=== PATIENT | male | born 1995 | race Caucasian/White ===

== ENCOUNTER 2023-04-28 19:49 | Inpatient (IN) | payer MEDICAID, SELFPAY ==
[2023-04-28 19:50] VITALS: BP 114/73; PULSE 82; RESP 16; TEMP 36.6; O2SAT 100; BMI 17.0
[2023-04-28 21:52] LABS: Absolute Lymphocyte Count 2.32 X10^3/uL (0.83-4.51); Absolute Neutrophil Count 3.6 X10^3/uL (2.0-7.7); Basophil# 0.02 X10^3/uL; Basophil% 0.3 % (0-1); Eosinophil# 0.12 X10^3/uL; Eosinophils% 1.9 % (0-5); Hematocrit 43.7 % (40-54); Hemoglobin 14.6 g/dL (13.0-16.5); Lymphocyte # 2.32 X10^3/ul (0.83-4.51); Lymphocyte % 36.1 % (19-41); Mean Corp Hgb Conc 33.4 g/dL (32-36); Mean Corpuscular Hgb 29.6 pg (27.0-32.0); Mean Corpuscular Volume 88.5 fL (80-94); Mean Platelet Vol. 10.2 fl (6.2-12.0); Monocyte# 0.38 X10^3/uL; Monocyte% 5.9 % (0-10); NRBC Flagged by Analyzer 0 % (0-5); Neutrophil # 3.57 X10^3/uL (2.7-7.7); Neutrophil % 55.6 % (47-70); Platelet Count 231 K/mm3 (150-450); RBC Distribution Width CV 12.4 % (11.6-14.6); Red Blood Count 4.94 M/mm3 (4.6-6.2); White Blood Count 6.4 K/mm3 (4.4-11.0)
--- NOTE | 2023-04-28 22:18 | EDS_ITS ---
HPI History of Present Illness Chief Complaint: Substance Abuse Informant: patient and spouse/S.O. Narrative Narrative: 27-year-old male presenting to the emergency department requesting detox from fentanyl. Patient states that he had been sober for 2 years until about 4 to 5 months ago when he began multiple daily uses. He notes that he injected 1 time and the rest has been smoking. He states that he used to only get withdrawal symptoms the next day but now he can go 1 to 2 hours after use before he gets some withdrawal symptoms. He notes chills and sweats. He notes some nausea and muscle cramps. He denies any pending legal issues. He is not on probation. He is not currently working. He states he is sick and tired of being sick and tired. He states the never-ending cycle of using and withdrawing has taken its toll and he wants to become sober [facility] Home Medications NK 04/28/23 [History Last Taken Unknown] Allergy/AdvReac Type Severity Reaction Status Date / Time No Known Allergies Allergy Verified 04/28/23 19:50 Social History (Updated 04/28/23 @ 22:[address] Hi Javier, ) Smoking Status: Current every day smoker tobacco type: cigarettes substance use type: opiates ROS ROS ED Constitutional Constitutional ED: Reports chills and sweats; Denies fever(s) or weight loss Eyes Eyes: Denies change in vision or diplopia ENT ENT ED: Denies ear pain, rhinorrhea or sore throat Cardiovascular Cardiovascular: Denies chest pain, orthopnea, palpitations or racing heartbeat Respiratory/Chest Respiratory/Chest: Denies cough, dyspnea or orthopnea Gastrointestinal Gastrointestinal: Reports nausea; Denies abdominal pain, diarrhea or vomiting Genitourinary Genitourinary ED: Denies dysuria, hematuria or urinary frequency Musculoskeletal Musculoskeletal: Reports myalgias; Denies arthralgias, back pain or neck pain Integumentary Denies abscess or rash Neurologic Neurologic: Reports headache(s); Denies weakness Psychiatric Psychiatric: Denies anxiety, depression, suicidal ideation or suicidal thoughts Endocrine Endocrinology: Denies polydipsia, polyphagia or polyuria Allergic/Immunologic Allergic/Immunologic ED: Denies mouth swelling, tongue swelling or urticaria EXAM Physical Exam Const Vital Signs: 04/28/23 19:50 Temperature 97.9 F Temperature Source Temporal Pulse Rate 82 Respiratory Rate 16 Blood Pressure 114/73 Blood Pressure Mean 86 Pulse Ox 100 Oxygen Delivery Method Room Air Positive well nourished and well developed General Appearance ED: well developed HEENT Reports normocephalic, head/scalp atraumatic and moist mucous membranes Eyes PERRL and EOMs intact bilaterally Neck no lymphadenopathy, supple and no JVD Resp normal respiratory effort and clear to auscultation bilaterally Cardio regular rate, regular rhythm and no murmurs GI normal to inspection, nondistended, normoactive bowel sounds and non-tender Palpation: soft Back/Spine no CVA tenderness and normal ROM Extremity normal to inspection General Extremety ED: Negative for edema General Extremity: Negative for edema Neuro oriented x3 and CN's II-XII intact bilaterally Sensorium / Orientation: alert Motor Exam: strength 5/5 throughout Psych mental status grossly normal Mood & Affect: Negative for depressed or tearful Skin no rashes or lesions noted and no wounds MDM MDM MDM Narrative Medical decision making narrative: ED addiction labs were obtained. Normal white count at 6.4. Urine tox is significant only for cannabinoids. CMP within normal limits. I spoke with the hospitalist who admit the patient to the [facility]. Lab Data Attestation: I reviewed the patient's lab results. Labs: Laboratory Results - last 24 hr 04/28/23 04/28/23 21:43 22:10 WBC 6.4 RBC 4.94 Hgb 14.6 Hct 43.7 MCV 88.5 MCH 29.6 MCHC 33.4 RDW Std Deviation 40.0 RDW Coeff of Viraj 12.4 Plt Count 231 MPV 10.2 Immature Gran % (Auto) 0.200 Neut % (Auto) 55.6 Lymph % (Auto) 36.1 Grant % (Auto) 5.9 Eos % (Auto) 1.9 Baso % (Auto) 0.3 Absolute Neuts (auto) 3.6 Absolute Lymphs (auto) 2.32 Nucleated RBC % 0 Sodium 137 Potassium 3.7 Chloride 102 Carbon Dioxide 31.0 Anion Gap 4 L BUN 8 Creatinine 0.76 Estim Creat Clear Calc 119.76 Est GFR (MDRD) Af Amer 157 Est GFR (MDRD) Non-Af 130 BUN/Creatinine Ratio 10.5 Glucose 55 L Calcium 9.2 Total Bilirubin 0.40 AST 24 ALT 46 Alkaline Phosphatase 104 Total Protein 7.8 Albumin 4.0 Globulin 3.8 Albumin/Globulin Ratio 1.1 Urine Opiates Screen NEGATIVE Urine Methadone Screen NEGATIVE Ur Barbiturates Screen NEGATIVE Ur Phencyclidine Scrn NEGATIVE Ur Amphetamines Screen NEGATIVE MDMA (Ecstasy) Screen NEGATIVE U Benzodiazepines Scrn NEGATIVE Urine Cocaine Screen NEGATIVE U Cannabinoids Screen POSITIVE H Ur Drug Screen Comment Ethyl Alcohol < 3.0 Management Discussion w/another healthcare provider: Hospitalist Discharge Plan Dx/Rx/DC Orders Clinical Impression: Opiate withdrawal, Opiate addiction Disposition Disposition: Acute Care Hospital [facility]
[2023-04-28 22:25] LABS: Alcohol, Blood (Medical)-Serum < 3.0 mg/dL
[2023-04-28 22:39] LABS: ALB/GLOB Ratio 1.1 RATIO (0.9-2.4); AST(SGOT) 24 U/L (15-37); Alanine Aminotransfer ALT/SGPT 46 U/L (16-61); Alkaline Phosphatase 104 U/L (45-117); Anion Gap 4 (5-15); BUN 8 mg/dL (7-18); BUN/Creat Ratio 10.5 RATIO (10-20); Calcium,Total 9.2 mg/dL (8.5-10.1); Chloride 102 mmol/L (98-107); Creatinine, Serum 0.76 mg/dL (0.70-1.30); EST Glomerular Filtration Rate 130 mL/min (>60); Est Glom Filt Rate - Afr Amer 157 mL/min (>60); Estimated Creatinine Clearance 119.76 ml/min; Globulin 3.8 g/dL (2.2-4.2); Glucose 55 mg/dL (74-106); Potassium 3.7 mmol/L (3.5-5.1); Protein, Total 7.8 g/dL (6.4-8.2); Sodium Level 137 mmol/L (136-145)
[2023-04-28 22:54] LABS: Amphetamine Urine VISTA NEGATIVE (<1000 ng/mL); Barbiturate Urine VISTA NEGATIVE (< 200 ng/mL); Benzodiazepine Urine VISTA NEGATIVE (< 200 ng/mL); Cocaine Urine VISTA NEGATIVE (< 300 ng/mL); Ecstacy Urine VISTA NEGATIVE (< 500 ng/mL); Methadone Urine VISTA NEGATIVE (< 300 ng/mL); PCP Urine VISTA NEGATIVE (< 25 ng/mL); THC Urine VISTA POSITIVE (< 50 ng/mL); Vista UDS pH Range 6
--- NOTE | 2023-04-28 23:19 | PCM.HP.STD ---
HPI - General General Date of Admission: 04/28/23 Date of Service: 04/28/23 Chief Complaint: Opioid withdrawal syndrome HPI Narrative LUKAS ANSARI, is a 27 M with history of chronic IVDA use, usesx fentanyl half to 1 g daily came to ED for help for withdrawal. Patient currently having active withdrawal symptoms including feeling of hot and cold, tremors, anxiety attack, goosebumps. Patient also have runny nose. Patient denies methamphetamine or crack cocaine use. Vitals are stable in the ER. Patient is admitted for acute blood withdrawal syndrome. Personal history of chronic hepatitis C. Family history no IV substance use in father or mother. [facility] Medical History Anxiety Cholecystectomy planned Hepatitis C Home Medications NK 04/28/23 [History Last Taken Unknown] Allergy/AdvReac Type Severity Reaction Status Date / Time No Known Allergies Allergy Verified 04/28/23 19:50 Social History Smoking Status: Current every day smoker tobacco type: cigarettes substance use type: opiates ROS ROS Narrative Constitutional: Reports fatigue and weakness. No fever. HEENT: Reports systems reviewed and no addt'l complaints, except as documented Respiratory/Chest: No acute shortness of breath or respiratory distress or wheezing. CVS: No chest pressure or tightness. Gastrointestinal: Denies coffee ground emesis, hematemesis or vomiting Genitourinary: Denies burning urination or new urinary tract symptoms Musculoskeletal: Denies acute joint pain or limited range of motion. No acute injury Neurologic: Denies seizure-like symptoms. Restlessness. skin: No ulcer. No rash Endocrinology: Reports systems reviewed and no addt'l complaints, except as documented Hematologic/Lymphatic: Reports systems reviewed and no addt'l complaints, except as documented Rest 14 ROS are negative except as mentioned in HPI Vital Signs Vital Signs Vital Signs: 04/28/23 19:50 Temperature 97.9 F Temperature Source Temporal Pulse Rate 82 Respiratory Rate 16 Blood Pressure 114/73 Blood Pressure Mean 86 Pulse Ox 100 Oxygen Delivery Method Room Air Weight Weight: 129 lb Body Mass Index (BMI) 17.0 Physical Exam Narrative General: Alert, Oriented x3, Cooperative HEENT: Atraumatic, PERRLA, EOMI, Normocephalic Oral: Oral mucosa dry. No Gingival or Mucosal Lesions/ Ulcerations Neck: Supple, No JVD, Negative Carotid Bruits Lungs: Air entry diminished in bilateral lung bases. No crepitation/rhonchi Cardiovascular: Regular rate, Regular Rhythm, Normal S1, Normal S2, No murmurs Abdomen: Bowel Sounds Present, Soft, Non Tender, Non-Distended : No renal angle tenderness. No suprapubic tenderness. Extremities: No edema, Capillary Refill Less than 3 Seconds Skin: No rashes, No breakdown Musculoskeletal: No Tenderness to Palpation of Joints or Extremities Neurological: Cranial nerves II-XII grossly intact, DTR 2+/4. No acute focal neurological deficit. Psych/Mental Status: Flat affect. Anxiety Results Lab / Micro Data 04/28/23 21:43 04/28/23 21:43 Labs: Laboratory Results - last 24 hr 04/28/23 21:43: WBC 6.4, RBC 4.94, Hgb 14.6, Hct 43.7, MCV 88.5, MCH 29.6, MCHC 33.4, RDW Std Deviation 40.0, RDW Coeff of Viraj 12.4, Plt Count 231, MPV 10.2, Immature Gran % (Auto) 0.200, Neut % (Auto) 55.6, Lymph % (Auto) 36.1, [place] % (Auto) 5.9, Eos % (Auto) 1.9, Baso % (Auto) 0.3, Absolute Neuts (auto) 3.6, Absolute Lymphs (auto) 2.32, Nucleated RBC % 0, Sodium 137, Potassium 3.7, Chloride 102, Carbon Dioxide 31.0, Anion Gap 4 L, BUN 8, Creatinine 0.76, Estim Creat Clear Calc 119.76, Est GFR (MDRD) Af Amer 157, Est GFR (MDRD) Non-Af 130, BUN/Creatinine Ratio 10.5, Glucose 55 L, Calcium 9.2, Total Bilirubin 0.40, AST 24, ALT 46, Alkaline Phosphatase 104, Total Protein 7.8, Albumin 4.0, Globulin 3.8, Albumin/Globulin Ratio 1.1, Ethyl Alcohol < 3.0 04/28/23 22:10: Urine Opiates Screen NEGATIVE, Urine Methadone Screen NEGATIVE, Ur Barbiturates Screen NEGATIVE, Ur Phencyclidine Scrn NEGATIVE, Ur Amphetamines Screen NEGATIVE, MDMA (Ecstasy) Screen NEGATIVE, U Benzodiazepines Scrn NEGATIVE, Urine Cocaine Screen NEGATIVE, U Cannabinoids Screen POSITIVE H, Ur Drug Screen Comment Assessment & Plan Assessment/Plan (1) Opioid withdrawal delirium, acute, hyperactive: PLAN: Plan 1. Acute opioid withdrawal syndrome with history of chronic opioid use disorder tolerance and dependence: [facility] The patient is started on buprenorphine along with other adjunctive medications as needed for medical stabilization as per order set of opioid withdrawal syndrome.Patient also on trazodone, hydroxyzine, gabapentin as needed ordered. Advised quitting opioid use. intervention manager consult. C WILFREDO and COWS score. 2. Chronic hepatitis C: Need to follow-up with the GI clinic. Advised quitting opioids. Denies HIV or hep B. 3. Chronic cigarette smoking: Nicotine patch DVT prophylaxis: Low risk. Early ambulation encouraged. No pharmacological prophylaxis indicated Laboratory Results 04/28/23 21:43: WBC 6.4, RBC 4.94, Hgb 14.6, Hct 43.7, MCV 88.5, MCH 29.6, MCHC 33.4, RDW Std Deviation 40.0, RDW Coeff of Viraj 12.4, Plt Count 231, MPV 10.2, Immature Gran % (Auto) 0.200, Neut % (Auto) 55.6, Lymph % (Auto) 36.1, [place] % (Auto) 5.9, Eos % (Auto) 1.9, Baso % (Auto) 0.3, Absolute Neuts (auto) 3.6, Absolute Lymphs (auto) 2.32, Nucleated RBC % 0, Sodium 137, Potassium 3.7, Chloride 102, Carbon Dioxide 31.0, Anion Gap 4 L, BUN 8, Creatinine 0.76, Estim Creat Clear Calc 119.76, Est GFR (MDRD) Af Amer 157, Est GFR (MDRD) Non-Af 130, BUN/Creatinine Ratio 10.5, Glucose 55 L, Calcium 9.2, Total Bilirubin 0.40, AST 24, ALT 46, Alkaline Phosphatase 104, Total Protein 7.8, Albumin 4.0, Globulin 3.8, Albumin/Globulin Ratio 1.1, Ethyl Alcohol < 3.0 04/28/23 22:10: Urine Opiates Screen NEGATIVE, Urine Methadone Screen NEGATIVE, Ur Barbiturates Screen NEGATIVE, Ur Phencyclidine Scrn NEGATIVE, Ur Amphetamines Screen NEGATIVE, MDMA (Ecstasy) Screen NEGATIVE, U Benzodiazepines Scrn NEGATIVE, Urine Cocaine Screen NEGATIVE, U Cannabinoids Screen POSITIVE H, Ur Drug Screen Comment Charges/Coding Visit Charges Inpatient E&M: 02976 Init Hosp L3
[2023-04-29 00:15] LABS: Prothrombin Time (Protime)PT. 13.4 SECONDS (11.7-14.9)
[2023-04-29 00:37] VITALS: BP 101/55; PULSE 58; RESP 18; O2SAT 97
[2023-04-29 00:40] VITALS: BP 101/55
[2023-04-29 01:03] VITALS: BMI 16.9
[2023-04-29 01:45] VITALS: BP 120/72; PULSE 61; RESP 16; TEMP 36.7; O2SAT 98
[2023-04-29] MEDS: Ondansetron 8 MG Tablet PO ×2 (01:50→12:02)
[2023-04-29] MEDS: traZODone 100 MG Tablet PO (01:50)
[2023-04-29] MEDS: Methocarbamol 750 MG Tablet PO ×2 (01:50→10:25)
[2023-04-29] MEDS: hydrOXYzine PAM 25 MG Capsule 50 MG PO ×3 (01:50→17:59)
[2023-04-29] MEDS: Buprenorphine HCl 2 MG TAB.SUBL SL ×3 (01:59→17:59)
[2023-04-29 03:18] VITALS: BP 139/96; PULSE 97; RESP 18; TEMP 36.5; O2SAT 100
[2023-04-29] MEDS: Gabapentin 300 MG Capsule PO ×2 (03:19→12:02)
[2023-04-29] MEDS: cloNIDine HCl 0.1 MG Tablet PO ×2 (03:19→12:02)
[2023-04-29] MEDS: Ibuprofen 600 MG Tablet PO ×2 (03:38→12:02)
--- NOTE | 2023-04-29 09:45 | PCM.PN.HOSP ---
Subjective Subjective Resting comfortably, Cina score of 11 Objective Data Objective Data Vital Signs: Vital Signs Temp Pulse Resp BP Pulse Ox O2 Del Method 97.7 F L 97 18 139/96 H 100 Room Air 04/29/23 03:18 04/29/23 03:18 04/29/23 03:18 04/29/23 03:18 04/29/23 03:18 04/29/23 03:18 Oxygen Delivery Method Room Air Weight: 128 lb 4.944 oz Body Mass Index (BMI) 16.9 Lab / Micro Data 04/28/23 21:43 04/28/23 21:43 Labs: Laboratory Results - last 24 hr 04/28/23 21:43: WBC 6.4, RBC 4.94, Hgb 14.6, Hct 43.7, MCV 88.5, MCH 29.6, MCHC 33.4, RDW Std Deviation 40.0, RDW Coeff of Viraj 12.4, Plt Count 231, MPV 10.2, Immature Gran % (Auto) 0.200, Neut % (Auto) 55.6, Lymph % (Auto) 36.1, [place] % (Auto) 5.9, Eos % (Auto) 1.9, Baso % (Auto) 0.3, Absolute Neuts (auto) 3.6, Absolute Lymphs (auto) 2.32, Nucleated RBC % 0, Sodium 137, Potassium 3.7, Chloride 102, Carbon Dioxide 31.0, Anion Gap 4 L, BUN 8, Creatinine 0.76, Estim Creat Clear Calc 119.76, Est GFR (MDRD) Af Amer 157, Est GFR (MDRD) Non-Af 130, BUN/Creatinine Ratio 10.5, Glucose 55 L, Calcium 9.2, Total Bilirubin 0.40, AST 24, ALT 46, Alkaline Phosphatase 104, Total Protein 7.8, Albumin 4.0, Globulin 3.8, Albumin/Globulin Ratio 1.1, Ethyl Alcohol < 3.0 04/28/23 22:10: Urine Opiates Screen NEGATIVE, Urine Methadone Screen NEGATIVE, Ur Barbiturates Screen NEGATIVE, Ur Phencyclidine Scrn NEGATIVE, Ur Amphetamines Screen NEGATIVE, MDMA (Ecstasy) Screen NEGATIVE, U Benzodiazepines Scrn NEGATIVE, Urine Cocaine Screen NEGATIVE, U Cannabinoids Screen POSITIVE H, Ur Drug Screen Comment 04/28/23 23:57: PT 13.4, INR 1.0 Physical Exam Narrative General: Alert, Oriented x3, Cooperative, No apparent distress HEENT: Atraumatic, PERRLA, EOMI, Normocephalic Oral: Moist Mucosa Neck: Supple, No JVD Lungs: Clear to auscultation, Normal air movement, No rhonchi, No wheeze, No rales Cardiovascular: Regular rate, Regular Rhythm, Normal S1, Normal S2, No murmurs Abdomen: Soft, Non Tender, Non-Distended, No Hepato-splenomegaly Extremities: No edema, Capillary Refill Less than 3 Seconds Skin: No rashes, No breakdown Musculoskeletal: No Tenderness to Palpation of Joints or Extremities Neurological: Cranial nerves II-XII grossly intact, Motor Exam 5/5 strength throughout, Sensory exam intact to light touch and pain Psych/Mental Status: Anxious Assessment & Plan Assessment/Plan (1) Opioid withdrawal delirium, acute, hyperactive: PLAN: Plan 1. Acute opioid withdrawal/chronic hepatitis C/tobacco abuse ? Continue with the opiate withdrawal protocol ? Cannot get treatment for his hepatitis C until he is clean from opiate abuse ? Continue with nicotine patch, discussed tobacco cessation ? We will have him follow-up with 180 for discharge planning DVT: Ambulation Charges/Coding Visit Charges Inpatient E&M: 02260 Subs Hosp L2
[2023-04-29 10:23] VITALS: BP 100/70; PULSE 67; RESP 18; TEMP 37.1; O2SAT 99
[2023-04-29] MEDS: Dicyclomine 10 MG Capsule 20 MG PO ×2 (10:25→17:59)
--- NOTE | 2023-04-29 14:53 | ADDICTION ---
This check writer met with PT to conduct ASAM, MSE, AUDIT assessments and to plan for d/c. PT A+Ox4 and participated actively. All assessments completed and placed in PT's chart. PT plans to f/u with [facility] for follow-up treatment services. PT did not indicate a need for transportation post d/c from [facility].
[2023-04-29 15:43] VITALS: BP 105/69; PULSE 83; RESP 18; TEMP 37.2; O2SAT 99
[2023-04-29] MEDS: Acetaminophen 500 MG Tablet PO (17:59)
[2023-04-30 01:29] VITALS: BP 119/71; PULSE 60; RESP 16; TEMP 36.6; O2SAT 99
[2023-04-30] MEDS: Buprenorphine HCl 2 MG TAB.SUBL SL ×2 (01:34→09:49)
[2023-04-30] MEDS: Gabapentin 300 MG Capsule PO (01:34)
[2023-04-30] MEDS: traZODone 100 MG Tablet PO (01:34)
[2023-04-30 04:00] VITALS: BP 98/64; PULSE 57; RESP 16; TEMP 36.6; O2SAT 98
[2023-04-30 09:45] VITALS: BP 98/70; PULSE 87; RESP 18; TEMP 36.9; O2SAT 95
[2023-04-30] MEDS: Dicyclomine 10 MG Capsule 20 MG PO (09:49)
[2023-04-30] MEDS: Methocarbamol 750 MG Tablet PO (09:49)
[2023-04-30] MEDS: hydrOXYzine PAM 25 MG Capsule 50 MG PO (09:49)
--- NOTE | 2023-04-30 10:31 | NURSING ---
Pt signed out AMA paper signed and girlfriend aware since [place] and that is his ride.
--- NOTE | 2023-04-30 10:32 | PCM.PN.HOSP ---
Subjective Subjective Resting comfortably with a Cina score of 1 Objective Data Objective Data Vital Signs: Vital Signs Temp Pulse Resp BP Pulse Ox O2 Del Method 98.5 F 87 18 98/70 95 Room Air 04/30/23 09:45 04/30/23 09:45 04/30/23 09:45 04/30/23 09:45 04/30/23 09:45 04/30/23 09:56 Oxygen Delivery Method Room Air Weight: 128 lb 4.944 oz Body Mass Index (BMI) 16.9 Intake & Output: Intake and Output for Last 24 Hours 04/29/23 04/30/23 05/01/23 03:59 03:59 03:59 Intake Total 100 / 100 Balance 100 / 100 Medical Nutrition Assessment Dietitian: Malnutrition Criteria Met Start: 04/29/23 10:35 Freq: Status: Active Protocol: Document 04/29/23 14:36 RMA (Rec: 04/29/23 14:36 RMA [id number]) Nutrition Malnutrition Evidence of Malnutrition Exists Yes Malnutrition (severe): Chronic Evidenced By Suboptimal Energy Intake ( Severe),Weight Loss (Severe), Physical Changes (Severe) Clinical Problem Chronic Disease or Condition Related Malnutrition Etiology Severe protein-calorie malnutrition in the context of chronic disease related to drug abuse and inadequate oral intake Signs/Symptoms as evidenced by PO meeting less than 50% estimated nutrition needs x 6 months, BMI 17.0, weight loss~12% x 6 months and moderate to severe fat depletion and muscle wasting in the face, clavicle, arms and legs. Status Active Problem Recommendation Dietitian Recommendations/Changes Will continue liberalized Regular diet w/ 3+ snacks per day as desired. Will continue 120mL ensure plus high protein 4 times per day w/ medpass. Will add Magic Cup BID w/ lunch and dinner. Lab / Micro Data 04/28/23 21:43 04/28/23 21:43 Physical Exam Narrative General: Alert, Oriented x3, Cooperative, No apparent distress HEENT: Atraumatic, PERRLA, EOMI, Normocephalic Oral: Moist Mucosa Neck: Supple, No JVD Lungs: Clear to auscultation, Normal air movement, No rhonchi, No wheeze, No rales Cardiovascular: Regular rate, Regular Rhythm, Normal S1, Normal S2, No murmurs Abdomen: Soft, Non Tender, Non-Distended, No Hepato-splenomegaly Extremities: No edema, Capillary Refill Less than 3 Seconds Skin: No rashes, No breakdown Musculoskeletal: No Tenderness to Palpation of Joints or Extremities Neurological: Cranial nerves II-XII grossly intact, Motor Exam 5/5 strength throughout, Sensory exam intact to light touch and pain Psych/Mental Status: Anxious Assessment & Plan Assessment/Plan (1) Opioid withdrawal delirium, acute, hyperactive: PLAN: Plan 1. Acute opioid withdrawal/chronic hepatitis C/tobacco abuse ? Continue with the opiate withdrawal protocol ? Cannot get treatment for his hepatitis C until he is clean from opiate abuse ? Continue with nicotine patch, discussed tobacco cessation ? We will have him follow-up with 180 for discharge planning DVT: Ambulation Charges/Coding Visit Charges Inpatient E&M: 68677 Subs Hosp L2
== END 2023-04-30 10:45 | disposition left against medical advice (07) | DRG 770 ==
LOC: ED 23:14 → MS3 04-29 02:11
PROVIDERS: Admitting Provider Internal Medicine; Emergency Provider Emergency Medicine; Visit Provider Family Medicine
DX: F11.23 Opioid dependence with withdrawal (principal); B18.2 Chronic viral hepatitis C; F17.210 Nicotine dependence, cigarettes, uncomplicated; Z53.29 Procedure and treatment not carried out because of patient's decision for other reasons
CPT/HCPCS: 36415; 80053; 80307; 82077; 85025; 85610; 97802; 99284; 99406